=== PATIENT | male | born 1955 | race Caucasian/White ===

== ENCOUNTER 2017-03-25 10:44 | Day surgery (SDC) | payer OTHER ==
[2017-03-25] MEDS ORDERED: diphenhydrAMINE 25 MG CAP PO ONE (10:49)
[2017-03-25] MEDS ORDERED: ASPIRIN EC 325 MG TAB PO ONE (10:49)
[2017-03-25] MEDS ORDERED: DIAZEPAM 5 MG TAB PO ONE (10:49)
[2017-03-25] MEDS ORDERED: FAMOTIDINE 20 MG TAB PO ONE (10:49)
[2017-03-25] MEDS ORDERED: NS 1,000 ML IV ONE (10:49)
--- NOTE | 2017-03-25 11:07 | CPEKG ---
Heart Rate: 78 RR Interval: 769 P-R Interval: 208 QRSD Interval: 86 QT Interval: 372 QTC Interval: 424 P [place]: 76 QRS [place]: 72 T Wave [place]: 60 EKG Severity - BORDERLINE ECG - EKG Impression: SINUS RHYTHM EKG Impression: PROBABLE LEFT ATRIAL ABNORMALITY Electronically Signed By: Luis Daniel Heart 25-Mar-2017 16:22:57
[2017-03-25 11:18] LABS: PLATELET COUNT 305 10^3/uL (150-400)
[2017-03-25 11:27] LABS: PROTIME(PATIENT) 13.4 SEC (12.0-15.0)
--- NOTE | 2017-03-25 11:35 | PDPROPOC ---
Sedation Plan of Care Sedation Plan of Care: vital signs stable, mental status noted, patient educated of risks, benefits, alternatives, patient can tolerate sedation ASA Classification: ASA 2 Planned drugs: fentanyl, midazolam Mallampati Score: Class 2 Mallampati Reference Image: Patient passed 3-3-2 rule?: Yes
--- NOTE | 2017-03-25 11:35 | PDHPUP ---
History & Physical Update H&P update statement: This history and physical update is based on an assessment of the patient which was completed after admission or registration (within 24 hours), but prior to the surgery/procedure. 61 year old gentleman with atypical chest pain with evidence of non sustained VT on holter with known CAD on calcium score. H&P update: H&P reviewed & patient examined, no change in patient's condition since H&P completed
[2017-03-25] MEDS ORDERED: LIDOCAINE 1% 300 MG/30 ML SDV ONE (11:38)
[2017-03-25] MEDS ORDERED: fentaNYL 100 MCG/2 ML INJ ONE ×2 (11:38→12:13)
[2017-03-25] MEDS ORDERED: MIDAZOLAM 2 MG/2 ML VIAL ONE ×2 (11:38→12:13)
[2017-03-25] MEDS ORDERED: IOPAMIDOL (ISOVUE-370) 150 ML BTL IV ONE (11:39)
[2017-03-25] MEDS ORDERED: OXYCODONE/APAP 5/325 TAB PO PRN (12:36)
[2017-03-25] MEDS ORDERED: HYDROCODONE/APAP 5/325 TAB PO PRN (12:36)
[2017-03-25] MEDS ORDERED: ATROPINE SULFATE 1 MG/10 ML SYR IVP PRN (12:36)
[2017-03-25] MEDS ORDERED: ONDANSETRON 4 MG/2 ML VIAL IVP PRN (12:36)
[2017-03-25] MEDS ORDERED: NITROGLYCERIN 0.4 MG BTL SL PRN (12:36)
--- NOTE | 2017-03-25 13:25 | GPN ---
[f rep st] PROCEDURE NOTE DATE OF PROCEDURE: 03/25/2017 PROCEDURE PERFORMED: Diagnostic left heart catheterization. INDICATION FOR LEFT HEART CATHETERIZATION: Coronary artery disease based off calcium score, atypical chest discomfort at rest, and runs of nonsustained ventricular tachycardia. After informed consent was obtained, the patient was brought to the cardiac catheterization lab where he was prepped and draped in a sterile fashion. Using the micropuncture technique with modified Karley rosaline technique, 6-Portuguese catheter was placed into the right common femoral artery without complicat ions. A JL4 catheter was used to take images of the left coronary anatomy in multiple projections. JL4 catheter was exchanged over a guidewire for a JR4 catheter. JR4 catheter was used to take images of the right coronary artery in multiple projections. The JR4 catheter was exchanged over a guidewi re for an angled pigtail catheter. Angled pigtail catheter was used to cross the aortic valve. Left ventriculogram was performed. LVEDP was assessed. Aortic valve gradient was assessed on pull-back. Angled pigtail catheter was removed over a guidewire without complications. Right common femoral a rtery angiography was obtained demonstrating appropriate placement above the bifurcation of the corby ter site. FINDINGS: 1. Left main normal size and caliber bifurcates into left anterior descending and left circumflex co ronary artery. There is no evidence of coronary artery disease within the left main. 2. Left anterior descending artery is free of coronary artery disease. There is no evidence of tamar nary artery disease within branch vessels or septal perforators. 3. The circumflex vessel is a nondominant vessel. There is no evidence of coronary artery disease w ithin the circumflex vessel or the 1st obtuse marginal branch. 4. The right coronary artery is a dominant vessel. There is no evidence of coronary artery disease within the right coronary artery. HEMODYNAMICS: LVEF 60% to 65%. LVEDP 15 mmHg gradient across the aortic valve. None. CONCLUSION: 1. Normal coronary arteries. 2. Normal left ventricular function. 3. LVEDP 15 mmHg. PLAN: 1. Patient will continue current outpatient medications. 2. Patient is scheduled to see Dr. Irwin Beckham for consultation regarding a known history of paroxysm al supraventricular tachycardia. /[id number]/MODL
== END 2017-03-25 17:42 | disposition home or self-care (01) ==
LOC: FCATH 10:44
PROVIDERS: ATTEND Internal Medicine Cardiovascular Disease
DX: I47.2 Ventricular tachycardia (principal); R07.89 Other chest pain; I47.1 Supraventricular tachycardia
CPT/HCPCS: J1644; J2250; J3010; Q9967

== ENCOUNTER 2017-07-29 07:39 | Day surgery (SDC) | payer OTHER ==
[2017-07-29] MEDS ORDERED: LIDOCAINE 1% 300 MG/30 ML SDV SC ONE (07:43)
--- NOTE | 2017-07-29 09:26 | PDGENHP ---
History & Physical Chief Complaint: palpitations History of Present Illness: 61 year old gentleman with evidence of asymptomatic WCT on 30 day zio patch monitor representing NSVT vs atrial tachycardia with abberancy. LHC earlier this year demonstrated no signifiant CAD. Pt reports occaisional palpitaitons associated with lightheadedness. He has been consulted by EP with consideration of medical therapy with Beta Jaelyn, vs EPS vs implantable loop recorder. He presents today for implantable loop. Pertinent Past, Social, Family History: CAD based on calcium score (normal cors and LVEF on LHC in Mar 2017). HTN Relevant Physical Exam: Normal exam, Physicallly fit Cardiorespiratory Assessment: normal exam
--- NOTE | 2017-07-29 10:24 | CPIP ---
[f rep st] INVASIVE CARDIAC PROCEDURE DATE OF PROCEDURE: 07/29/2017 PROCEDURE PERFORMED: [employer] implantable loop recorder. INDICATION FOR LOOP RECORDER: Symptomatic palpitations with evidence of nonsustained ventricular tac hycardia versus atrial tachycardia with aberrancy on 30 day Zio patch monitor. PROCEDURE: After consents were obtained for [employer] implantable loop recorder, patient was prepped and draped in a sterile fashion. Using 1% lidocaine, the 4th intercostal space at 2 cm from midline on left anterior chest was anesthetized with lidocaine. After local anesthesia was obtained, incisio n was made with scalpel blade and followed by a scalpel tool provided in the [employer] kit. A tract was made in the skin with the device. [employer] loop recorder was deployed without complication. He mostasis was achieved. Steri-Strips were applied. Post deployment testing of device demonstrated ex cellent capture with P-waves present. The patient tolerated the procedure well. PLAN: 1. Sterile dressing and Tegaderm have been applied. 2. The patient has been given postoperative wound care instructions. 3. Patient will present to the office for followup next week for wound check and device check. /[id number]/MODL
== END 2017-07-29 10:40 | disposition home or self-care (01) ==
LOC: FCATH 07:39
PROVIDERS: ATTEND Internal Medicine Cardiovascular Disease
PROC: 0JH602Z Insertion of Monitoring Device into Chest Subcutaneous Tissue and Fascia, Open Approach (ICD-10-PCS; principal; 2017-07-29)
DX: I47.1 Supraventricular tachycardia (principal); R00.2 Palpitations
CPT/HCPCS: C1764